=== PATIENT | male | born 1965 ===

== ENCOUNTER 2018-12-01 11:24 | Emergency (ER) | payer MEDICAID ==
[~2018-12-01] VITALS: Ht 170.2 cm; Wt 75.3 kg
== END 2018-12-01 15:53 | disposition left against medical advice (07) ==
LOC: ER 11:24
DX: Z53.21 Procedure and treatment not carried out due to patient leaving prior to being seen by health care provider (principal)

== ENCOUNTER 2019-03-06 10:01 | Inpatient (IN) | payer OTHER ==
[~2019-03-06] VITALS: Ht 170.2 cm; Wt 71.2 kg
[2019-03-06] MEDS ORDERED: METF500C PO (10:10)
[2019-03-06] MEDS ORDERED: Augmentin 875-1 EACH PO (10:10)
[2019-03-06 10:31] LABS: BASOPHILS ABSOLUTE AUTO 0.04 K/mm3 (0.00-0.23); BASOPHILS PERCENT AUTO 0 % (0-2); EOSINOPHILS ABSOLUTE AUTO 0.07 K/mm3 (0.00-0.68); EOSINOPHILS PERCENT AUTO 1 % (0-6); Hematocrit 39.9 % (37.0-53.0); Hemoglobin 13.9 g/dL (13.5-17.5); IMMATURE GRAN ABSOLUTE AUTO 0.13 K/mm3 (0.00-0.10); IMMATURE GRAN PERCENT AUTO 1 % (0-1); LYMPHOCYTES ABSOLUTE AUTO 1.24 K/mm3 (0.84-5.20); LYMPHOCYTES PERCENT AUTO 12 % (21-46); MONOCYTES ABSOLUTE AUTO 1.03 K/mm3 (0.16-1.47); MONOCYTES PERCENT AUTO 10 % (4-13); Mean Corpuscular HGB 31.5 pg (26.0-34.0); Mean Corpuscular HGB Conc 34.8 g/dL (31.5-36.5); Mean Corpuscular Volume 91 fL (80-100); Mean Platelet Volume 10.7 fL (9.1-12.4); NEUTROPHILS ABSOLUTE AUTO 7.72 K/mm3 (1.96-9.15); NEUTROPHILS PERCENT AUTO 75 % (41-73); Platelet Count 252 K/mm3 (150-400); RDW Coefficient Variation 12.3 % (11.7-14.2); RDW Standard Deviation 41.1 fL (35.1-46.3); Red Blood Cell Count 4.41 M/mm3 (4.30-5.90); White Blood Cell Count 10.23 K/mm3 (4.00-11.30)
[2019-03-06 10:49] LABS: Alanine Aminotransfer (ALT/SGP 28 U/L (12-78); Albumin, Blood 2.7 g/dL (3.4-5.0); Albumin/Globulin Ratio 0.6 (0.8-1.8); Alk Phos 172 U/L (50-136); Anion Gap 6 mmol/L (6-16); Aspartate Aminotrans (AST/SGOT 19 U/L (12-37); Bilirubin, Total 0.8 mg/dL (0.1-1.0); Blood Urea Nitrogen 15 mg/dL (8-24); Bun/Creatinine Ratio 18.2 (12.0-20.0); CO2, Blood 28 mmol/L (21-32); Calcium, Blood 9.5 mg/dL (8.5-10.1); Chloride, Blood 100 mmol/L (98-108); Creatinine, Blood 0.82 mg/dL (0.60-1.20); Globulin, Blood 4.6 g/dL (2.2-4.0); Glomerular Filtration Rate >60 (60-); Glucose, Blood 222 mg/dL (70-99); Potassium, Blood 4.3 mmol/L (3.5-5.5); Sodium, Blood 134 mmol/L (136-145); Total Protein, Blood 7.3 g/dL (6.4-8.2)
[2019-03-06] MEDS ORDERED: GLIM2 PO (13:28)
--- NOTE | 2019-03-06 17:54 | NUR ---
SHIFT SUMMARY NO ACUTE CONCERNS AT THIS TIME. THE PATIENT HAS PICTURES IN HIS CHART OF HIS FOOT. THE CONSENT IS SIGNED. PATIENT IS ALERT AND ORIENTED INDEPENDENT. NO ACUTE CONCERNS, PATIENT PLEASANT AND QUIET. CALLS APPROPRIATELY.
--- NOTE | 2019-03-07 04:50 | NUR ---
CIVIL ENGINEERING PROFESSOR SUMMARY NO ACUTE CHANGES THIS SHIFT. PT AAOX4 AND COOPERATIVE WITH CARE. DRESSING ON R FOOT ULCER DRY AND INTACT. PT DENIES NEED FOR PAIN MEDS FOR FOOT. PT REPORTS HAVING HICCUPS FOR LAST FEW DAYS. PT HAS SLEPT MAJORITY OF SHIFT. CONTINUES ON IV FLUIDS. VSS, WILL CONTINUE TO MONITOR.
[2019-03-07 05:44] LABS: BASOPHILS ABSOLUTE AUTO 0.06 K/mm3 (0.00-0.23); BASOPHILS PERCENT AUTO 1 % (0-2); EOSINOPHILS ABSOLUTE AUTO 0.13 K/mm3 (0.00-0.68); EOSINOPHILS PERCENT AUTO 2 % (0-6); Hematocrit 37.4 % (37.0-53.0); Hemoglobin 12.8 g/dL (13.5-17.5); IMMATURE GRAN ABSOLUTE AUTO 0.18 K/mm3 (0.00-0.10); IMMATURE GRAN PERCENT AUTO 2 % (0-1); LYMPHOCYTES ABSOLUTE AUTO 1.33 K/mm3 (0.84-5.20); LYMPHOCYTES PERCENT AUTO 16 % (21-46); MONOCYTES ABSOLUTE AUTO 0.81 K/mm3 (0.16-1.47); MONOCYTES PERCENT AUTO 10 % (4-13); Mean Corpuscular HGB 30.8 pg (26.0-34.0); Mean Corpuscular HGB Conc 34.2 g/dL (31.5-36.5); Mean Corpuscular Volume 90 fL (80-100); NEUTROPHILS ABSOLUTE AUTO 5.71 K/mm3 (1.96-9.15); NEUTROPHILS PERCENT AUTO 69 % (41-73); Platelet Count 242 K/mm3 (150-400); RDW Coefficient Variation 12.5 % (11.7-14.2); RDW Standard Deviation 41.2 fL (35.1-46.3); Red Blood Cell Count 4.15 M/mm3 (4.30-5.90); White Blood Cell Count 8.22 K/mm3 (4.00-11.30)
[2019-03-07 06:03] LABS: Anion Gap 5 mmol/L (6-16); Blood Urea Nitrogen 11 mg/dL (8-24); Bun/Creatinine Ratio 17.4 (12.0-20.0); CO2, Blood 27 mmol/L (21-32); Calcium, Blood 8.7 mg/dL (8.5-10.1); Chloride, Blood 101 mmol/L (98-108); Creatinine, Blood 0.63 mg/dL (0.60-1.20); Glomerular Filtration Rate >60 (60-); Glucose, Blood 193 mg/dL (70-99); Potassium, Blood 4.1 mmol/L (3.5-5.5); Sodium, Blood 133 mmol/L (136-145)
--- NOTE | 2019-03-07 19:05 | NUR ---
SHIFT SUMMARY PT HAS HAD NO COMPLAINTS OF PAIN THIS SHIFT. PT WAS NPO MOST OF THE SHIFT WAITING FOR PHYSICIAN TO SEE HIM FOR POSSIBLE PROCEDURE ON FOOT. DR. TERRLELERS IN TO SEE PT THIS EVENING AND SAID PT COULD EAT TONIGHT. NO ACUTE CHANGES THIS SHIFT. CALL LIGHT IN REACH. WILL CONTINUE TO MONITOR AND REPORT TO ONCOMING RN.
--- NOTE | 2019-03-08 06:28 | NUR ---
Rn summary: Patient has a drsg to right foot which is clean dry and intact. Patient has denied pain, states it is feeling better this evening. Pt was able to sleep some more at the beginning of shift. Pt to have MRI this morning. MRI form faxed to [facility]. Pt is independant in room, uses call light appropriately.
--- NOTE | 2019-03-08 11:44 | NUR ---
CALLED DR JESUS OFFICE TO CONFIRM THAT HE WILL BE IN TO SEE PT TODAY PER DR CARR NOTE, OFFICE REPORTS THEY WILL FOLLOW UP WITH DR JESUS TO CONFIRM.
--- NOTE | 2019-03-08 16:51 | NUR ---
SHIFT SUMMARY- PT A/U, INDEP IN ROOM. SLIGHT LANGUAGE BARRIER NOTED BUT PT ABLE TO ANSWER EVERYTHING AND SPOUSE AT BEDSIDE T/O THE DAY. PT MEDICATED WITH THORAZINE PRN FOR HICCUPS, REPORTS HICCUPS FOR THE PAST 4-5 DAYS CONSTANTLY. LS CLEAR, ON RA. HRR. PT REPORTS 4/10 PAIN TO RIGHT FOOT BUT REPORTS TOLERABLE, DRESSING TO RIGHT FOOT ULCER CHANGED. AWAITING CONSULT FROM DR JESUS WHICH WAS CALLED IN TODAY TO OFFICE. TELE NSR AT 81. NO OTHER ACUTE CHANGES THIS SHIFT.
--- NOTE | 2019-03-08 18:39 | NUR ---
DR JESUS IN TO SEE PT.
[2019-03-09 05:00] LABS: BASOPHILS ABSOLUTE AUTO 0.09 K/mm3 (0.00-0.23); BASOPHILS PERCENT AUTO 1 % (0-2); EOSINOPHILS ABSOLUTE AUTO 0.22 K/mm3 (0.00-0.68); EOSINOPHILS PERCENT AUTO 2 % (0-6); Hematocrit 39.3 % (37.0-53.0); Hemoglobin 13.6 g/dL (13.5-17.5); IMMATURE GRAN ABSOLUTE AUTO 0.38 K/mm3 (0.00-0.10); IMMATURE GRAN PERCENT AUTO 4 % (0-1); LYMPHOCYTES ABSOLUTE AUTO 1.82 K/mm3 (0.84-5.20); LYMPHOCYTES PERCENT AUTO 19 % (21-46); MONOCYTES ABSOLUTE AUTO 0.78 K/mm3 (0.16-1.47); MONOCYTES PERCENT AUTO 8 % (4-13); Mean Corpuscular HGB 31.1 pg (26.0-34.0); Mean Corpuscular HGB Conc 34.6 g/dL (31.5-36.5); Mean Corpuscular Volume 90 fL (80-100); Mean Platelet Volume 9.7 fL (9.1-12.4); NEUTROPHILS ABSOLUTE AUTO 6.12 K/mm3 (1.96-9.15); NEUTROPHILS PERCENT AUTO 65 % (41-73); Platelet Count 315 K/mm3 (150-400); RDW Coefficient Variation 12.3 % (11.7-14.2); RDW Standard Deviation 40.9 fL (35.1-46.3); Red Blood Cell Count 4.37 M/mm3 (4.30-5.90); White Blood Cell Count 9.41 K/mm3 (4.00-11.30)
--- NOTE | 2019-03-09 05:08 | NUR ---
Rn summary: Patient is alert and oriented. He is very quiet. Patient drsg was applied at shift change. Pt assessment is negative except for rt foot wound and hiccups. Pt has been medicated with thorazine 25mg x1 for hiccups with relief. He has rested quietly. Pt denies discomfort. He is independant, uses the urinal. Call light is in reach. Plan for surgical intevention to rt foot Thu.
[2019-03-09 05:32] LABS: Albumin, Blood 2.5 g/dL (3.4-5.0); Anion Gap 8 mmol/L (6-16); Blood Urea Nitrogen 17 mg/dL (8-24); Bun/Creatinine Ratio 20.8 (12.0-20.0); CO2, Blood 27 mmol/L (21-32); Calcium, Blood 9.1 mg/dL (8.5-10.1); Chloride, Blood 101 mmol/L (98-108); Creatinine, Blood 0.82 mg/dL (0.60-1.20); Glomerular Filtration Rate >60 (60-); Glucose, Blood 132 mg/dL (70-99); Phosphorus, Blood 3.9 mg/dL (2.5-4.9); Potassium, Blood 4.2 mmol/L (3.5-5.5); Sodium, Blood 136 mmol/L (136-145)
--- NOTE | 2019-03-09 16:34 | NUR ---
INTO SDS VIA [employer]. PT PRIMARY LANGUAGE IS UGANDAN, BUT HE IS ABLE TO COMMUNICATE NEEDS WELL. PT REPORTS 3/10 RIGHT FOOT PAIN. HICCOUGHS NOTED. HISTORY AND ALLERGIES REVIEWED. NPO STATUS CONFIRMED. LUNGS CLEAR-SATS>90% ON RA. [id number].
--- NOTE | 2019-03-09 16:37 | NUR ---
PT TO DAY SURGERY FOR I&D.
--- NOTE | 2019-03-09 17:33 | NUR ---
03/09/19 1733 Lorraine Souza PT ON SCHEDULED ANTIBIOTICS
--- NOTE | 2019-03-09 17:54 | NUR ---
SHIFT SUMMARY- PT A/O X4, INDEP IN ROOM. PT DENIES ANY COMPLAINTS T/O SHIFT. PT WITH I&D RIGHT FOOT THIS EVENING. PT REPORTS HICCUPS HAVE IMPROVED. NO OTHER ACUTE CHANGES THIS SHIFT.
--- NOTE | 2019-03-09 18:39 | NUR ---
PT ARRIVED BACK TO ROOM VIA GURNEY FROM PACU. PT AWAKE AND ALERT. PT DENIES ANY COMPLAINTS AT THIS TIME. DRESSING TO RIGHT FOOT C/D/I.
--- NOTE | 2019-03-10 06:16 | NUR ---
53 year old MAle with rt foot cellulitis diadetic foot ulcer had I & D rt foot and tolerated well. medicated x 1 for rt foot pain with good relief. medicated x 1 for ongoing hiccups with helpful relief with thorazine. able to communicate speaks Czech well. Continues on IV antibiotics, will have wound vac placed today.
--- NOTE | 2019-03-10 14:30 | NUR ---
WOUND VAC APPLIED. WOUND VAC PLACED ON PT R FOOT. SEALED WELL. PT TOLLERATED WELL.
--- NOTE | 2019-03-10 16:54 | NUR ---
SHIFT SUMMARY WOUND VAC IN PLACE & SEALED ON THE R FOOT. PT MEDICATED FOR PAIN 2X THIS SHIFT. NO OTHER CHANGES IN ASSESSMENT AT THIS TIME. VSS. SEE CHART FOR UPDATED PICS OF WOUNDS. WILL CONTINUE TO MONITOR UNTIL TURNOVER IS COMPLETE.
--- NOTE | 2019-03-11 04:57 | NUR ---
REPORTING COORDINATOR SUMMARY NO ACUTE CHANGES THIS SHIFT. PT AAOX4 AND PLEASANT. WOUND VAC IN PLACE ON R FOOT WITH GOOD SUCTION. TREATED FOR PAIN OF R FOOT X1 WITH GOOD PAIN RELIEF. PT DENIES N/V, SOB. CONTINUING ON IV ZOSYN PER EMAR. VSS, WILL CONTINUE TO MONITOR.
--- NOTE | 2019-03-11 10:49 | NUR ---
DR. JESUS DC INSTRUCTIONS DR. JESUS CONTACTED ABOUT INSTRUCTIONS FOR PT DC. STATED PT IS OK FOR WEIGHT BEARING TOLERATED ON THE R FOOT. POST OP SHOE NEEDED PRIOR TO DC FOR MOBILITY PER DR. JESUS. PT TO DC WITH A WOUND VAC & BE REFERED TO THE WOUND CENTER FOR CHANGES. CARE MANAGMENT AWARE & WORKING ON IT. DR. JESUS ALSO REQUESTING THE PT DC ON AN ANTIBIOTIC. DR. JESUS OFFICE STATED THEY WOULD MAKE THE PT A FOLLOW UP APPOINTMENT & CALL PT WITH DATE/TIME. DISCHARGE PLANNING STATED IT MAY TAKE A DAY OR TWO TO GET INSURANCE APPROVAL ON DC WITH WOUND VAC. DR. CARREON NOTIFIED.
--- NOTE | 2019-03-11 16:43 | NUR ---
SHIFT SUMMARY NO CHANGES IN ASSESSMENT AT THIS TIME. VSS. PT WOUND VAC IN PLACE & SEALED WELL. AT BEDSIDE & UPDATED ON PT CARE. WILL CONTINUE TO MONITOR UNTIL TURNOVER IS COMPLETE. DC HELD DUE TO WOUND VAC PAPERS NEEDING TO BE SIGNED BY DR. JESUS. CARE MANAGEMENT LEFT MESSAGE ON DR. JESUS CELL.
--- NOTE | 2019-03-12 05:59 | NUR ---
SHIFT SUMMARY PT SLEPT WELL DURING THE NIGHT. OFFERS NO C/O'S. WOUND VAC IN PLACE AND IS SUCTIONING PROPERLY. PT ALERT AND ORIENTED. IV ANTIBIOTICS GIVEN DURING THE NIGHT. NO ACUTE EVENTS NOTED DURING THE NIGHT, WILL CONTINUE TO MONITOR.
--- NOTE | 2019-03-12 18:36 | NUR ---
PATIENT A/OX4, UP INDEPENDENTLY IN ROOM. PLANNED FOR D/C TODAY, BUT UNABLE TO GET WOUND VAC DELIVERED. ALL PAPERWORK NEEDED HAS BEEN FAXED TO [facility], AWAITING APPROVAL FROM INSURANCE. WOUND VAC LAST CHANGED 03/10/19. DENIES ANY PAIN. VSS, ON RA. ACHS BLOOD SUGARS, NO SS COVERAGE NEEDED TODAY. CALM AND COOPERATIVE WITH CARE CALLS APPROPRIATELY FOR ASSISTANCE.
--- NOTE | 2019-03-13 05:11 | NUR ---
SHIFT SUMMARY PT SLEPT WELL T/O NIGHT. NO ACUTE CHANGES THIS SHIFT. AOX4. VSS. DENIES SOB OR NAUSEA. REPORTS 6/10 PAIN IN R FOOT, MEDICATED 1X W/NORCO PER ORDERS, DENIES ANY DISCOMFORT IN FOOT THIS AM. WOUND VAC PATENT & DRESSING C/D/I, NO DRAINAGE NOTED. REPORTS HAVING THE HICCUPS FOR 8 DAYS STRAIGHT, MEDICATED W/THORAZINE 1X PER ORDERS, HICCUPS STOP WHILE PT SLEEPS. WENT TO GIVE MIDNIGHT ANTIBIOTIC & REALIZED PT HAD A NO IV ACCESS ORDER, CALLED DR MCKINNEY & HE DC'D IV ZOSYN & ORDERED PO [facility]EVAQU[facility] NOTE MENTIONED PT DCING HOME ON IT. INDEPENDENT IN ROOM, CALL LIGHT IN REACH & I WILL CONTINUE TO MONITOR PT.
[2019-03-13] MEDS ORDERED: GLIP5 PO (12:01)
[2019-03-13] MEDS ORDERED: Prinivil10 MG PO (12:01)
[2019-03-13] MEDS ORDERED: LEVO750 PO (12:02)
[2019-03-13] MEDS ORDERED: Florastor250 MG PO (12:11)
--- NOTE | 2019-03-13 14:50 | NUR ---
PATIENT D/C'D TO [facility] WITH S/O. WOUND VAC CHANGED PRIOR TO D/C AND PATIENT INSTRUCTED OF USE. D/C MEDICATIONS FAXED TO [facility]. D/C INSTRUCTIONS AND EDUCATION DISCUSSED WITH PATIENT AND COPY PROVIDED. [facility], MESSAGE LEFT FOR SUPERVISOR PURIFICATION TO FOLLOW UP WITH PATIENT TOMORROW. PATIENT DENIES ANY FURTHER QUESTIONS OR CONCERNS.
== END 2019-03-13 14:57 | disposition home health service (06) | DRG 982 ==
LOC: ER 10:01 → MEDS 12:57 → ENPENDDIS 03-13 10:44 → MEDS 03-13 14:57
PROVIDERS: Family Medicine; Physician Assistant; Podiatrist; ADMIT Internal Medicine
PROC: 0KBV0ZZ Excision of Right Foot Muscle, Open Approach (ICD-10-PCS; principal; 2019-03-09 17:00)
DX: E11.621 Type 2 diabetes mellitus with foot ulcer (principal); L03.115 Cellulitis of right lower limb; M00.271 Other streptococcal arthritis, right ankle and foot; L97.513 Non-pressure chronic ulcer of other part of right foot with necrosis of muscle; E11.628 Type 2 diabetes mellitus with other skin complications; I10 Essential (primary) hypertension; K21.9 Gastro-esophageal reflux disease without esophagitis; B95.4 Other streptococcus as the cause of diseases classified elsewhere; E11.65 Type 2 diabetes mellitus with hyperglycemia
CPT/HCPCS: 36415; 73630; 73718; 80048; 80053; 80069; 82947; 85025; 87070; 87071; 87075; 87077; 87186; 87205; 93005; 93010; 96374; 99284-25; A9270-GY; J1100; J2250; J2405; J2543; J2704; J3010; J7030; J7050; J7120

== ENCOUNTER 2019-03-16 08:41 | Emergency (ER) | payer OTHER ==
[~2019-03-16] VITALS: Ht 170.2 cm; Wt 70.8 kg
[~2019-03-16 08:41] MED LIST: Augmentin 875-1 EACH PO; Florastor250 MG PO; GLIM2 PO; GLIP5 PO; LEVO750 PO; METF500C PO; Prinivil10 MG PO
== END 2019-03-16 09:47 | disposition home or self-care (01) ==
LOC: ER 08:41
DX: Z48.817 Encounter for surgical aftercare following surgery on the skin and subcutaneous tissue (principal); Z79.84 Long term (current) use of oral hypoglycemic drugs; Z79.899 Other long term (current) drug therapy; E11.9 Type 2 diabetes mellitus without complications; I10 Essential (primary) hypertension; Z87.891 Personal history of nicotine dependence
CPT/HCPCS: 99282

== ENCOUNTER → 2020-03-18 | Outpatient (CLI) | payer OTHER ==
[2020-03-18 10:45] LABS: BASOPHILS ABSOLUTE AUTO 0.05 K/mm3 (0.00-0.23); BASOPHILS PERCENT AUTO 1 % (0-2); EOSINOPHILS PERCENT AUTO 1 % (0-6); Hematocrit 42.7 % (37.0-53.0); Hemoglobin 15.4 g/dL (13.5-17.5); IMMATURE GRAN ABSOLUTE AUTO 0.04 K/mm3 (0.00-0.10); IMMATURE GRAN PERCENT AUTO 1 % (0-1); LYMPHOCYTES ABSOLUTE AUTO 0.98 K/mm3 (0.84-5.20); LYMPHOCYTES PERCENT AUTO 14 % (21-46); MONOCYTES ABSOLUTE AUTO 0.89 K/mm3 (0.16-1.47); MONOCYTES PERCENT AUTO 13 % (4-13); Mean Corpuscular HGB 33.1 pg (26.0-34.0); Mean Corpuscular HGB Conc 36.1 g/dL (31.5-36.5); Mean Corpuscular Volume 92 fL (80-100); Mean Platelet Volume 11.1 fL (9.1-12.4); NEUTROPHILS ABSOLUTE AUTO 5.06 K/mm3 (1.96-9.15); NEUTROPHILS PERCENT AUTO 71 % (41-73); Platelet Count 207 K/mm3 (150-400); RDW Coefficient Variation 12.8 % (11.7-14.2); RDW Standard Deviation 42.5 fL (35.1-46.3); Red Blood Cell Count 4.65 M/mm3 (4.30-5.90); White Blood Cell Count 7.12 K/mm3 (4.00-11.30)
[2020-03-18 10:56] LABS: Alanine Aminotransfer (ALT/SGP 21 U/L (12-78); Albumin, Blood 3.1 g/dL (3.4-5.0); Albumin/Globulin Ratio 0.7 (0.8-1.8); Alk Phos 131 U/L (40-126); Anion Gap 10 mmol/L (6-16); Aspartate Aminotrans (AST/SGOT 28 U/L (12-37); Bilirubin, Total 0.8 mg/dL (0.1-1.0); Blood Urea Nitrogen 24 mg/dL (8-24); Bun/Creatinine Ratio 21.6 (12.0-20.0); CO2, Blood 24 mmol/L (21-32); Calcium, Blood 8.9 mg/dL (8.5-10.1); Chloride, Blood 99 mmol/L (98-108); Creatinine, Blood 1.11 mg/dL (0.60-1.20); Globulin, Blood 4.3 g/dL (2.2-4.0); Glomerular Filtration Rate >60 (60-); Glucose, Blood 178 mg/dL (70-99); Sodium, Blood 133 mmol/L (136-145); Total Protein, Blood 7.4 g/dL (6.4-8.2)
== END | disposition home or self-care (01) ==
LOC: LAB SHORT 10:41 → LAB EV 10:41
PROVIDERS: General Practice
DX: L08.9 Local infection of the skin and subcutaneous tissue, unspecified (principal)
CPT/HCPCS: 80053; 85025

== ENCOUNTER 2021-01-19 11:07 | Inpatient (IN) | payer OTHER ==
[~2021-01-19] VITALS: Ht 170.2 cm; Wt 76.7 kg
[2021-01-19 12:06] LABS: Source, Urine Clean Catch
[2021-01-19 12:10] LABS: BASOPHILS ABSOLUTE AUTO 0.06 K/mm3 (0.00-0.23); BASOPHILS PERCENT AUTO 0 % (0-2); EOSINOPHILS PERCENT AUTO 0 % (0-6); Hematocrit 35.3 % (37.0-53.0); Hemoglobin 12.4 g/dL (13.5-17.5); IMMATURE GRAN ABSOLUTE AUTO 0.19 K/mm3 (0.00-0.10); IMMATURE GRAN PERCENT AUTO 1 % (0-1); LYMPHOCYTES ABSOLUTE AUTO 0.62 K/mm3 (0.84-5.20); LYMPHOCYTES PERCENT AUTO 3 % (21-46); MONOCYTES PERCENT AUTO 6 % (4-13); Mean Corpuscular HGB 32.1 pg (26.0-34.0); Mean Corpuscular HGB Conc 35.1 g/dL (31.5-36.5); Mean Corpuscular Volume 92 fL (80-100); Mean Platelet Volume 11.8 fL (9.1-12.4); NEUTROPHILS ABSOLUTE AUTO 18.39 K/mm3 (1.96-9.15); NEUTROPHILS PERCENT AUTO 90 % (41-73); Platelet Count 267 K/mm3 (150-400); RDW Coefficient Variation 11.9 % (11.7-14.2); Red Blood Cell Count 3.86 M/mm3 (4.30-5.90); White Blood Cell Count 20.46 K/mm3 (4.00-11.30)
[2021-01-19 12:14] LABS: Bilirubin, Urine Neg (Neg); Blood, Urine 3+ (Neg); Glucose Qualitative, Urine Neg (Neg); Ketones, Urine Neg (Neg); Leukocyte Esterase, Urine Neg (Neg); Nitrite, Urine Neg (Neg); Protein, Urine 3+ (Neg); Urobilinogen, Urine NORM (Normal)
[2021-01-19 12:14] LABS: Albumin, Blood 2.7 g/dL (3.4-5.0); Albumin/Globulin Ratio 0.6 (0.8-1.8); Bilirubin, Total 0.8 mg/dL (0.1-1.0); Bun/Creatinine Ratio 34.5 (12.0-20.0); Calcium, Blood 8.8 mg/dL (8.5-10.1); Creatinine, Blood 1.45 mg/dL (0.60-1.20); Globulin, Blood 4.8 g/dL (2.2-4.0); Potassium, Blood 4.4 mmol/L (3.5-5.5); Total Protein, Blood 7.5 g/dL (6.4-8.2)
[2021-01-19 12:26] LABS: International Normalized Ratio 1.01; Prothrombin Time Results 10.9 Sec (9.7-11.5)
[2021-01-19 12:33] LABS: Appearance, Urine Clear (Clear); Color, Urine Yellow (P-Yellow)
[2021-01-19 12:39] LABS: Bacteria Few /hpf; Squamous Epithelial Cells Few /hpf (Few)
--- NOTE | 2021-01-19 17:06 | NUR ---
PT AOX4 AND COOPERATIVE OF CARE. PT ARRIVED TO ROOM AT 1430 NO DISTESS NOTED. PT HAS BEEN SETTLED INTO ROOM. PT STATES HIS FOOT PAIN IS AT A 5 AND MAY WANT SOMETHING MORE LATER. PT HAS CALL LIGHT WITHIN REACH AND AMBULATES WELL. WILL CONTINUE TO MONITOR.
[2021-01-20 05:15] LABS: BASOPHILS ABSOLUTE AUTO 0.04 K/mm3 (0.00-0.23); BASOPHILS PERCENT AUTO 0 % (0-2); Hematocrit 30.5 % (37.0-53.0); Hemoglobin 10.4 g/dL (13.5-17.5); LYMPHOCYTES ABSOLUTE AUTO 0.77 K/mm3 (0.84-5.20); LYMPHOCYTES PERCENT AUTO 4 % (21-46); MONOCYTES ABSOLUTE AUTO 1.34 K/mm3 (0.16-1.47); MONOCYTES PERCENT AUTO 8 % (4-13); Mean Corpuscular HGB 31.9 pg (26.0-34.0); Mean Corpuscular HGB Conc 34.1 g/dL (31.5-36.5); Mean Corpuscular Volume 94 fL (80-100); Mean Platelet Volume 11.6 fL (9.1-12.4); Platelet Count 214 K/mm3 (150-400); RDW Standard Deviation 41.9 fL (35.1-46.3); Red Blood Cell Count 3.26 M/mm3 (4.30-5.90); White Blood Cell Count 17.89 K/mm3 (4.00-11.30)
[2021-01-20 05:33] LABS: Anion Gap 7 mmol/L (6-16); Blood Urea Nitrogen 47 mg/dL (8-24); Bun/Creatinine Ratio 38.8 (12.0-20.0); CO2, Blood 23 mmol/L (21-32); Calcium, Blood 8.1 mg/dL (8.5-10.1); Chloride, Blood 105 mmol/L (98-108); Creatinine, Blood 1.21 mg/dL (0.60-1.20); Glomerular Filtration Rate >60 (60-); Glucose, Blood 162 mg/dL (70-99); Potassium, Blood 4.3 mmol/L (3.5-5.5); Sodium, Blood 135 mmol/L (136-145)
[2021-01-20 05:34] LABS: EOSINOPHILS ABSOLUTE AUTO 0.01 K/mm3 (0.00-0.68); EOSINOPHILS PERCENT AUTO 0 % (0-6); IMMATURE GRAN ABSOLUTE AUTO 0.48 K/mm3 (0.00-0.10); IMMATURE GRAN PERCENT AUTO 3 % (0-1); NEUTROPHILS ABSOLUTE AUTO 15.25 K/mm3 (1.96-9.15); NEUTROPHILS PERCENT AUTO 85 % (41-73)
--- NOTE | 2021-01-20 06:34 | NUR ---
SHIFT SUMMARY: PATIENT IS A&OX4, ABLE TO MAKE NEEDS KNOWN. REPORTING PAIN IN R FOOT 2-5/10. TYLENOL EXTRA STRENGTH IS GIVEN X 2 WITH GOOD EFFECT. PATIENT WAS DTV AND WAS ABLE TO STAND AT BEDSIDE AND VOID 1000 MLS OF URINE. TEMP OF 101.2 WAS OBSERVED AT START OF SHIFT.
--- NOTE | 2021-01-20 16:49 | NUR ---
PT AOX4 AND COOPERATIVE OF CARE. TREATING R FOOT PAIN PER EMAR NO ACUTE CHANGES WITH R FOOT. PT INDEPENDENT IN ROOM AND CALL LIGHT WITHIN REACH. WILL CONTINUE TO MONITOR.
--- NOTE | 2021-01-21 04:20 | NUR ---
SUMMARY PT HAD SOME DISCOMFORT TO FOOT. PT TX PER EMAR W/ RELIEF. PT SLEPT T/O SHIFT. PT THIS AM HAS NOTED TEMP >100. PT HAD BEEN GIVEN TYLENOL PRIOR FOR PAIN. WCTM. PT CURRENTLY SLEEPING IN NO DISTRESS. CALL LIGHT IN REACH.
--- NOTE | 2021-01-21 18:44 | NUR ---
PT AOX4 AND COOPERATIVE OF CARE. PT TREATED FOR R FOOT PAIN PER EMAR. PAIN INCREASED TODAY AND NEW PAIN MEDICATION ADDED TO EMAR. PT ALSO HAD AND INCREASE IN HR AND TEMP TODAY AND GOT UP TO 102.2. DR VERA NOTIFIED IMMEDIATELY. ABX TREAMENT CHANGED AND ICE BAGS APPLIED TO ARMPITS AND BACK OF NECK. 1845 [address]P [address] VERA MADE DECISION TO TRANSFER PT TO [facility] AND REPORT WAS CALLED 1834 TO PHOE[facility] HUI. PT HAS CONTINUED TO BE INDEPENDENT IN ROOM. COVID TEST COMPLETED PT TOLERATED WELL. WILL CONTINUE TO MONITOR.
[2021-01-21 19:07] LABS: Influenza A, PCR NEGATIVE (NEGATIVE); Influenza B, PCR NEGATIVE (NEGATIVE); Resp Syncytial Virus, PCR NEGATIVE (NEGATIVE); SARS-Cov-2 (COVID-19) PCR, MMC NEGATIVE (NEGATIVE)
--- NOTE | 2021-01-21 20:18 | NUR ---
KAMI REPORTED NOT FEELING WELL ALL OVER BUT DENIED PAIN OR DISCOMFORT. DENIED CHEST PAIN, SOB, DIZZINESS OR HEADACHE. HE HAD NUMBNESS AND TINGLING OF THE FEET DUE TO DIABETES. WOUND ON SIDE OF RIGHT FOOT,REDNESS UP LEG, SWELLING +2 PITTING. LUNG SOUNDS ARE CLEAR. HR NORMAL. TELE RUNNING SINUS. DISCUSSED TRANSFER TO [facility]. [facility] ARRIVED. GAVE DOCUMENTATION. REPORT GIVEN. 1 BAG OF BELONGINGS LEFT WITH PATIENT INCLUDING GLASSES, WALLET AND CELLPHONE. STOPPED IVF AND SL. REMOVED TELE. PATIENT LEFT AT 2018.
== END 2021-01-21 20:17 | disposition short-term general hospital (02) | DRG 871 ==
LOC: ER 11:07 → ERHOLD 14:05 → MEDS 15:47
PROVIDERS: Internal Medicine; Physician Assistant; ADMIT Internal Medicine
DX: A41.9 Sepsis, unspecified organism (principal); M72.6 Necrotizing fasciitis; L03.115 Cellulitis of right lower limb; E11.621 Type 2 diabetes mellitus with foot ulcer; L97.519 Non-pressure chronic ulcer of other part of right foot with unspecified severity; E11.40 Type 2 diabetes mellitus with diabetic neuropathy, unspecified; Z20.822 Contact with and (suspected) exposure to COVID-19; I10 Essential (primary) hypertension; K21.9 Gastro-esophageal reflux disease without esophagitis; Z87.891 Personal history of nicotine dependence; Z79.899 Other long term (current) drug therapy; Z79.84 Long term (current) use of oral hypoglycemic drugs
CPT/HCPCS: 0241U; 36415; 73620; 73701; 80048; 80053; 81001; 82947; 83605; 85025; 85610; 85651; 85730; 87086; 93005; 93010; 93926; 96365; 99284-25; A9270; A9270-GY; J0295; J3370; J7030; J7050; J7120; Q9967

== ENCOUNTER → 2021-01-19 | Outpatient (CLI) | payer OTHER ==
[2021-01-19 11:06] LABS: BASOPHILS ABSOLUTE AUTO 0.04 K/mm3 (0.00-0.23); BASOPHILS PERCENT AUTO 0 % (0-2); EOSINOPHILS ABSOLUTE AUTO 0.02 K/mm3 (0.00-0.68); EOSINOPHILS PERCENT AUTO 0 % (0-6); Hematocrit 34.2 % (37.0-53.0); Hemoglobin 12.2 g/dL (13.5-17.5); IMMATURE GRAN ABSOLUTE AUTO 0.13 K/mm3 (0.00-0.10); IMMATURE GRAN PERCENT AUTO 1 % (0-1); LYMPHOCYTES ABSOLUTE AUTO 0.73 K/mm3 (0.84-5.20); LYMPHOCYTES PERCENT AUTO 4 % (21-46); MONOCYTES ABSOLUTE AUTO 1.09 K/mm3 (0.16-1.47); MONOCYTES PERCENT AUTO 6 % (4-13); Mean Corpuscular HGB 32.4 pg (26.0-34.0); Mean Corpuscular HGB Conc 35.7 g/dL (31.5-36.5); Mean Corpuscular Volume 91 fL (80-100); Mean Platelet Volume 11.3 fL (9.1-12.4); NEUTROPHILS ABSOLUTE AUTO 17.27 K/mm3 (1.96-9.15); NEUTROPHILS PERCENT AUTO 90 % (41-73); Platelet Count 262 K/mm3 (150-400); RDW Coefficient Variation 11.9 % (11.7-14.2); Red Blood Cell Count 3.77 M/mm3 (4.30-5.90); White Blood Cell Count 19.28 K/mm3 (4.00-11.30)
[2021-01-19 11:15] LABS: Albumin, Blood 2.6 g/dL (3.4-5.0); Albumin/Globulin Ratio 0.6 (0.8-1.8); Bilirubin, Total 0.6 mg/dL (0.1-1.0); Bun/Creatinine Ratio 31.1 (12.0-20.0); Calcium, Blood 8.7 mg/dL (8.5-10.1); Creatinine, Blood 1.67 mg/dL (0.60-1.20); Globulin, Blood 4.6 g/dL (2.2-4.0); Potassium, Blood 4.5 mmol/L (3.5-5.5); Total Protein, Blood 7.2 g/dL (6.4-8.2)
== END | disposition home or self-care (01) ==
LOC: LAB SHORT 11:02 → LAB EV 11:02
PROVIDERS: General Practice
DX: A41.9 Sepsis, unspecified organism (principal)
CPT/HCPCS: 80053; 85025

== ENCOUNTER 2021-02-20 19:02 | Emergency (ER) | payer OTHER ==
[~2021-02-20] VITALS: Ht 170.2 cm; Wt 74.8 kg
[2021-02-20 19:56] LABS: BASOPHILS ABSOLUTE AUTO 0.04 K/mm3 (0.00-0.23); BASOPHILS PERCENT AUTO 0 % (0-2); EOSINOPHILS ABSOLUTE AUTO 0.08 K/mm3 (0.00-0.68); EOSINOPHILS PERCENT AUTO 1 % (0-6); Hematocrit 34.7 % (37.0-53.0); Hemoglobin 11.9 g/dL (13.5-17.5); IMMATURE GRAN ABSOLUTE AUTO 0.07 K/mm3 (0.00-0.10); IMMATURE GRAN PERCENT AUTO 1 % (0-1); LYMPHOCYTES ABSOLUTE AUTO 1.26 K/mm3 (0.84-5.20); LYMPHOCYTES PERCENT AUTO 8 % (21-46); MONOCYTES ABSOLUTE AUTO 0.79 K/mm3 (0.16-1.47); MONOCYTES PERCENT AUTO 5 % (4-13); Mean Corpuscular HGB Conc 34.3 g/dL (31.5-36.5); Mean Corpuscular Volume 90 fL (80-100); Mean Platelet Volume 11.4 fL (9.1-12.4); NEUTROPHILS ABSOLUTE AUTO 13.01 K/mm3 (1.96-9.15); NEUTROPHILS PERCENT AUTO 85 % (41-73); Platelet Count 300 K/mm3 (150-400); RDW Standard Deviation 42.7 fL (35.1-46.3); Red Blood Cell Count 3.84 M/mm3 (4.30-5.90); White Blood Cell Count 15.25 K/mm3 (4.00-11.30)
[2021-02-20 20:30] LABS: Albumin, Blood 3.4 g/dL (3.4-5.0); Albumin/Globulin Ratio 0.8 (0.8-1.8); Bilirubin, Total 0.4 mg/dL (0.1-1.0); Calcium, Blood 9.6 mg/dL (8.5-10.1); Creatinine, Blood 1.37 mg/dL (0.60-1.20); Globulin, Blood 4.2 g/dL (2.2-4.0); Potassium, Blood 4.1 mmol/L (3.5-5.5); Total Protein, Blood 7.6 g/dL (6.4-8.2)
== END 2021-02-20 21:02 | disposition left against medical advice (07) ==
LOC: ER 19:02
PROVIDERS: Physician Assistant
DX: R10.30 Lower abdominal pain, unspecified (principal); Z53.21 Procedure and treatment not carried out due to patient leaving prior to being seen by health care provider; Z79.84 Long term (current) use of oral hypoglycemic drugs; Z79.899 Other long term (current) drug therapy
CPT/HCPCS: 80053; 85025; 99283

== ENCOUNTER 2021-10-29 09:13 | Day surgery (SDC) | payer OTHER ==
[~2021-10-29] VITALS: Ht 170.2 cm; Wt 73.0 kg
[2021-10-29] MEDS ORDERED: ZOCOR20 MG (09:30)
[2021-10-29] MEDS ORDERED: METF500 (09:31)
== END 2021-10-29 10:51 | disposition home or self-care (01) ==
LOC: ORSCSDS 09:13
PROVIDERS: Surgery
PROC: 0DJD8ZZ Inspection of Lower Intestinal Tract, Via Natural or Artificial Opening Endoscopic (ICD-10-PCS; principal; 2021-10-29 10:30)
DX: Z12.11 Encounter for screening for malignant neoplasm of colon (principal); F32.A Depression, unspecified; I10 Essential (primary) hypertension; E11.9 Type 2 diabetes mellitus without complications; Z79.84 Long term (current) use of oral hypoglycemic drugs; Z79.899 Other long term (current) drug therapy
CPT/HCPCS: 82947; J2704; J7120

== ENCOUNTER 2022-03-25 10:09 | Day surgery (SDC) | payer OTHER ==
[~2022-03-25] VITALS: Ht 170.2 cm; Wt 74.8 kg
[~2022-03-25 10:09] MED LIST changes: +ATOR10 PO; +Amitriptyline H10 MG PO; +METF500; +ZOCOR20 MG
--- NOTE | 2022-03-25 10:48 | NUR ---
03/25/22 1048 Sangeeta Gaona CALL LIGHT WITHIN REACH. MAC AT 1046 PLENATE AT 1053 IN THE LEFT EYE
== END 2022-03-25 12:11 | disposition home or self-care (01) ==
LOC: ORSCSDS 10:09
PROVIDERS: Ophthalmology
PROC: 08RK3JZ Replacement of Left Lens with Synthetic Substitute, Percutaneous Approach (ICD-10-PCS; principal; 2022-03-25 11:30)
DX: H25.12 Age-related nuclear cataract, left eye (principal); E11.42 Type 2 diabetes mellitus with diabetic polyneuropathy; I10 Essential (primary) hypertension; K21.9 Gastro-esophageal reflux disease without esophagitis; Z87.891 Personal history of nicotine dependence; E78.5 Hyperlipidemia, unspecified; F32.A Depression, unspecified; Z79.84 Long term (current) use of oral hypoglycemic drugs; Z79.899 Other long term (current) drug therapy
CPT/HCPCS: 82947; J2250; J3010; J3301; J7040; V2632

== ENCOUNTER → 2023-09-09 | Outpatient (CLI) | payer OTHER | LOC: LAB SHORT 12:54 | DX: L02.212 Cutaneous abscess of back [any part, except buttock and flank] (principal) | CPT/HCPCS: 87070; 87075; 87076; 87205 ==

== ENCOUNTER 2025-09-05 12:44 | Emergency (ER) | payer MEDICARE ==
[~2025-09-05] VITALS: Ht 165.1 cm; Wt 68.0 kg
[2025-09-05] MEDS ORDERED: AMLO5 PO (13:37)
[2025-09-05] MEDS ORDERED: FARXIGA10 MG PO (13:37)
[2025-09-05 15:21] LABS: BASOPHILS ABSOLUTE AUTO 0.04 K/mm3 (0.00-0.23); BASOPHILS PERCENT AUTO 1 % (0-2); EOSINOPHILS ABSOLUTE AUTO 0.10 K/mm3 (0.00-0.68); EOSINOPHILS PERCENT AUTO 2 % (0-6); Hematocrit 45.0 % (37.0-53.0); Hemoglobin 14.6 g/dL (13.5-17.5); IMMATURE GRAN ABSOLUTE AUTO 0.02 K/mm3 (0.00-0.10); IMMATURE GRAN PERCENT AUTO 0 % (0-1); LYMPHOCYTES ABSOLUTE AUTO 1.33 K/mm3 (0.84-5.20); LYMPHOCYTES PERCENT AUTO 20 % (21-46); MONOCYTES ABSOLUTE AUTO 0.79 K/mm3 (0.16-1.47); MONOCYTES PERCENT AUTO 12 % (4-13); Mean Corpuscular HGB Conc 32.4 g/dL (31.5-36.5); Mean Corpuscular Volume 84 fL (80-100); NEUTROPHILS ABSOLUTE AUTO 4.42 K/mm3 (1.96-9.15); NEUTROPHILS PERCENT AUTO 66 % (41-73); NRBC ABSOLUTE 0.00 K/mm3 (0.00-0.02); NRBC Auto 0.0 /100 WBC (0.0-0.2); Platelet Count 218 K/mm3 (150-400); RDW Coefficient Variation 13.9 % (11.7-14.2); RDW Standard Deviation 42.6 fL (35.1-46.3)
[2025-09-05] MEDS ORDERED: CLOP75 PO (15:30)
[2025-09-05] MEDS ORDERED: ASPIR 8181 M1 PO (15:30)
[2025-09-05 15:37] LABS: Anion Gap 11.0 mmol/L (3-11); Blood Urea Nitrogen 26.0 mg/dL (8-24); CO2, Blood 25.0 mmol/L (21-32); Calcium, Blood 9.8 mg/dL (8.5-10.1); Chloride, Blood 103.0 mmol/L (98-108); Creatinine, Blood 0.95 mg/dL (0.60-1.20); Glucose, Blood 128.0 mg/dL (70-99); Potassium, Blood 4.2 mmol/L (3.5-5.5); Sodium, Blood 135.0 mmol/L (136-145)
[2025-09-05 15:38] VITALS: BP 147/90
== END 2025-09-05 15:59 | disposition home or self-care (01) ==
LOC: ER 12:44
PROVIDERS: Emergency Medicine
DX: G45.9 Transient cerebral ischemic attack, unspecified (principal); E11.9 Type 2 diabetes mellitus without complications; I10 Essential (primary) hypertension; E78.5 Hyperlipidemia, unspecified; Z79.84 Long term (current) use of oral hypoglycemic drugs; Z87.891 Personal history of nicotine dependence
CPT/HCPCS: 70450; 80048; 85025; 85651; 93005; 93010; 93880; 99284-25; A9270